=== PATIENT | female | born 1985 | race Caucasian/White ===

== ENCOUNTER 2019-03-02 14:02 | Emergency (ER) | payer BC ==
[~2019-03-02] VITALS: Ht 172.7 cm; Wt 65.3 kg
[2019-03-02] MEDS ORDERED: SODIUM CHLORIDE 0.9% 1000ML 1,000 ML IV STA (14:27)
[2019-03-02 14:38] LABS: PREGNANCY TEST, URINE POSITIVE (NEGATIVE)
[2019-03-02 14:51] LABS: CLARITY,URINE SL CLOUDY (CLEAR); COLOR,URINE YELLOW (YELLOW)
[2019-03-02 14:52] LABS: BILIRUBIN,URINE NEGATIVE (NEGATIVE); URINE UROBILINOGEN 0.2 mg/dL (0.2 - 1)
[2019-03-02 14:52] LABS: BASOPHILS # (AUTO) 0.1 (0.0-0.1); BASOPHILS % 0.5 % (0.0-1.0); EOSINOPHILS # (AUTO) 0.3 (0.0-0.4); EOSINOPHILS % 2.1 % (0.0-6.0); HEMATOCRIT 39.1 % (34.2-44.1); HEMOGLOBIN 13.3 g/dL (12.0-16.0); LYMPHOCYTES # (AUTO) 2.2 (1.0-3.2); LYMPHOCYTES % 18.5 % (18.0-39.1); MONOCYTES # (AUTO) 0.9 (0.2-0.8); MONOCYTES % 7.3 % (4.4-11.3); NEUTROPHILS # (AUTO) 8.5 (2.1-6.9); NEUTROPHILS % 71.2 % (38.7-80.0); PLATELET COUNT 241 x10e3/uL (140-360); RED BLOOD COUNT 4.16 x10e6/uL (3.6-5.1); RED CELL DISTRIBUTION WIDTH 12.7 % (11.7-14.4)
[2019-03-02 14:53] LABS: KETONES,URINE NEGATIVE (NEGATIVE); PROTEIN,URINE DIPSTICK NEGATIVE (NEGATIVE)
[2019-03-02 14:54] LABS: LEUKOCYTE ESTERASE ,URINE NEGATIVE (NEGATIVE); NITRITE,URINE NEGATIVE (NEGATIVE)
[2019-03-02 15:12] LABS: ALANINE AMINOTRANSFERASE 26 IU/L (0-55); ALBUMIN 3.7 g/dL (3.5-5.0); ALBUMIN/GLOBULIN RATIO 1.2 (0.8-2.0); ALKALINE PHOSPHATASE 74 IU/L (40-150); ANION GAP 11.7 mmol/L (8-16); BLOOD UREA NITROGEN 10 mg/dL (7-26); BUN/CREATININE RATIO 16 (6-25); CALCIUM 9.3 mg/dL (8.4-10.2); CARBON DIOXIDE 22 mmol/L (22-29); CHLORIDE 102 mmol/L (98-107); CREATININE, SERUM 0.64 mg/dL (0.57-1.11); EST GLOMERULAR FILTRATION RATE > 60 ML/MIN (60-); GLUCOSE 83 mg/dL (74-118); POTASSIUM 3.7 mmol/L (3.5-5.1); SODIUM 132 mmol/L (136-145)
[2019-03-02 15:35] LABS: AMORPHOUS SEDIMENT,URINE MODERATE (FEW); BACTERIA,URINE FEW /HPF; EPITHELIAL CELLS,URINE FEW /LPF
[2019-03-02 15:38] LABS: HCG,QUANTITATIVE 130102.08 mIU/mL (0-10)
--- NOTE | 2019-03-02 16:57 | Diagnostic Imaging Report ---
EXAM: US OB TRANSVAG 1ST TRI SINGLE DATE: 03/02/2019 2:27 PM INDICATION: Vaginal bleeding COMPARISON: None TECHNIQUE: Transvaginal sonographic images of the pelvis were obtained using sánchez scale and color doppler. Transvaginal imaging was medically necessary to better evaluate the fetus. G 3P0A 2 LMP 01/09/2019 Clinical gestational age: 7w3d FINDINGS: The uterus measures 9.9 x 4.9 x 7.7 cm. There is a ovoid intrauterine gestational sac identified with mean sac diameter of 2.53 cm. A pole is identified with crown-rump length of 1.46 cm corresponding to a ultrasound age of 7 weeks, 6 days. Cardiac activity is identified at 160 bpm. A yolk sac is present. The right ovary measures 3.1 x 2.3 x 2.7 cm. An involuting corpus luteum cyst is identified measuring 1.0 x 0.7 cm. The left ovary measures 2.8 x 1.5 x 2.0 cm. No abnormal adnexal masses are identified. No free fluid is visualized. IMPRESSION: Single viable intrauterine gestation identified with estimated sonographic age of 7 weeks, 6 days. Signed by: Dr. Artur Perales MD on 03/02/2019 4:54 PM
== END 2019-03-02 18:30 | disposition home or self-care (01) ==
LOC: ER 14:02
DX: O20.9 Hemorrhage in early pregnancy, unspecified (principal); O20.0 Threatened abortion
CPT/HCPCS: 36415; 76817; 80053; 81001; 81025; 84702; 85025; 86850; 86900; 87086; 99284; J7030